=== PATIENT | female | born 1990 | race Caucasian/White ===

== ENCOUNTER 2019-11-21 18:40 | Emergency (ER) | payer OTHER, BC ==
[~2019-11-21] VITALS: Ht 152.4 cm; Wt 45.5 kg
[~2019-11-21 18:40] MED LIST: DAILY MULTIPLE1 TA3 PO; DHA PO; DIFLUCAN PO; LORTAB 5/500 501 TAB PO; MOTRIN 800800 MG/TAB PO; NO HOME MEDICATIONS; NYSTATIN CREAM15 GM TP; PERCOCET 325 MG1 TA2 PO; PHILLIPS MILK PO; POLYMYXIN B/TRIMETH OD; ULTRAM50 MG PO; ZOFRAN 4MG T4 MG/TAB PO
[2019-11-21 18:45] VITALS: TEMP 98.9
[2019-11-21] MEDS ORDERED: MOBIC 7.5MG7.5 MG PO (19:23)
[2019-11-21 19:50] VITALS: BP 116/82; PULSE 101
== END 2019-11-21 19:50 | disposition home or self-care (01) ==
LOC: COL.ER 18:40
DX: S92.342A Displaced fracture of fourth metatarsal bone, left foot, initial encounter for closed fracture (principal); F17.210 Nicotine dependence, cigarettes, uncomplicated; Z88.5 Allergy status to narcotic agent; W19.XXXA Unspecified fall, initial encounter; Y92.59 Other trade areas as the place of occurrence of the external cause

== ENCOUNTER → 2020-01-16 | Outpatient (CLI) | payer BC ==
[2005-05-16 06:26] VITALS: TEMP 97.1
[~2020-01-16] MED LIST changes: +MOBIC 7.5MG7.5 MG PO
== END ==
LOC: ZCOL.LAB 17:36
DX: H92.01 Otalgia, right ear (principal)

== ENCOUNTER 2021-12-08 12:05 | Emergency (ER) | payer BC ==
[~2021-12-08] VITALS: Ht 152.4 cm; Wt 48.2 kg
[2021-12-08 12:10] VITALS: TEMP 99.2
[2021-12-08 12:51] LABS: BASO # 0.1 K/mm3 (0.0-0.2); BASO % 0.4 % (0.0-2.0); EOS # 0.2 K/mm3 (0.0-0.7); EOS % 1.1 % (0.0-4.0); GRAN # 9.5 K/mm3 (1.4-6.5); GRAN % 69.9 % (42.2-75.2); HEMATOCRIT 40.1 % (37.0-47.0); HEMOGLOBIN 13.7 g/dl (12.5-16.0); LYMPH # 3.1 K/mm3 (1.2-3.4); LYMPH % 22.4 % (20.0-51.0); MEAN CELL VOLUME 91 fl (80.0-100.0); MEAN CORPUSCULAR HEMOGLOBIN 31 pg (27-31); MEAN CORPUSCULAR HGB CONC 34 g/dl (33.0-37.0); MEAN PLATELET VOLUME 10.5 fl (7.4-10.4); MONO # 0.8 K/mm3 (0.1-0.6); MONO % 5.9 % (1.7-9.3); PLATELET COUNT 338 K/mm3 (130-400); REDCELL DISTRIBUTION WIDTH-CV 11.9 % (11.5-14.5)
[2021-12-08 13:23] LABS: ALANINE AMINOTRANSFERASE 11 U/L (0-55); ALBUMIN 3.9 gm/dL (3.5-5.0); ALKALINE PHOSPHATASE 53 U/L (40-150); ANION GAP 10 mmol/L (7-16); AST,SGOT 15 U/L (5-34); BILIRUBIN,TOTAL 0.2 mg/dL (0.2-1.2); BLOOD UREA NITROGEN 8 mg/dL (7-19); CALCIUM 9.3 mg/dL (8.4-10.2); CARBON DIOXIDE 21 mmol/L (22-29); CHLORIDE 109 mmol/L (98-107); CREATININE, serum 0.61 mg/dL (0.57-1.11); GLUCOSE 107 mg/dL (70-99); POTASSIUM 3.8 mmol/L (3.5-4.5); SODIUM 140 mmol/L (136-145); TOTAL PROTEIN 6.8 gm/dL (6.2-8.1)
[2021-12-08 13:43] LABS: THYROID STIMULATING HORMONE 0.391 uIU/mL (0.350-4.940)
[2021-12-08 13:45] LABS: TROPONIN-I < 0.010 ng/mL (0.00-0.033)
[2021-12-08] MEDS ORDERED: ZOFRAN ODT4 MG PO (15:39)
[2021-12-08 15:49] VITALS: BP 123/75; PULSE 123
== END 2021-12-08 15:51 | disposition home or self-care (01) ==
LOC: COL.ER 12:05
PROVIDERS: Nurse Practitioner Family
DX: R00.2 Palpitations (principal); R11.0 Nausea; R42 Dizziness and giddiness; F17.210 Nicotine dependence, cigarettes, uncomplicated; D72.829 Elevated white blood cell count, unspecified; Z20.822 Contact with and (suspected) exposure to COVID-19; Z28.310 Unvaccinated for COVID-19
CPT/HCPCS: J2405; J7030

== ENCOUNTER → 2024-02-29 | Outpatient (CLI) | payer OTHER ==
[2005-05-16 06:26] VITALS: TEMP 97.1
[~2024-02-29] MED LIST changes: +ZOFRAN ODT4 MG PO
== END ==
LOC: MHCPAIN 08:46
DX: M51.27 Other intervertebral disc displacement, lumbosacral region (principal); M46.1 Sacroiliitis, not elsewhere classified; M53.3 Sacrococcygeal disorders, not elsewhere classified
CPT/HCPCS: G0463

== ENCOUNTER → 2024-03-12 | Outpatient (CLI) | payer OTHER ==
[2005-05-16 06:26] VITALS: TEMP 97.1
[~2024-03-12] MED LIST changes: +Iohexol 300 - 10 ML VIAL ONE
== END ==
LOC: MHCPAIN 09:34
DX: M46.1 Sacroiliitis, not elsewhere classified (principal)
CPT/HCPCS: G0260; J0665; J1010; Q9967

== ENCOUNTER → 2024-04-04 | Outpatient (CLI) | payer OTHER ==
[2005-05-16 06:26] VITALS: TEMP 97.1
[~2024-04-04] MED LIST changes: -Iohexol 300 - 10 ML VIAL ONE
== END ==
LOC: MHCPAIN 09:25
DX: M51.27 Other intervertebral disc displacement, lumbosacral region (principal); M53.3 Sacrococcygeal disorders, not elsewhere classified; M13.88 Other specified arthritis, other site
CPT/HCPCS: G0463